=== PATIENT | female | born 1965 | race Two or more races ===

== ENCOUNTER 2022-12-09 22:17 | Emergency (ER) | payer OTHER ==
[~2022-12-09] VITALS: Ht 154.9 cm; Wt 98.0 kg
[~2022-12-09 22:17] MED LIST: COZAAR100 MG; CRESTOR10 MG PO; CRESTOR40 MG; DIFLUCAN400 MG/200; FLUCONAZOLE150 MG PO; NYSTATIN-TRIAMC15 GM TP; SYNTHROID50 MCG PO; TRIPLE ANTIBIOT15 GM TP; [UNRECOGNIZED DRUG - OTHER]
== END 2022-12-10 03:34 | disposition left against medical advice (07) ==
LOC: ER 22:17
DX: G43.909 Migraine, unspecified, not intractable, without status migrainosus (principal)